=== PATIENT | female | born 1980 | race Caucasian/White ===

== ENCOUNTER 2016-12-06 04:25 | Observation (INO) ==
[2016-12-06] MEDS ORDERED: ONDANSETRON 4 MG/2 ML VIAL IVP ONE (04:45)
[2016-12-06] MEDS ORDERED: MORPHINE SULFATE 4 MG/1 ML IVP ONE (04:45)
[2016-12-06] MEDS ORDERED: Sodium Chloride 0.9% 1,000 ML PRIMARY IV ONE ×2 (04:45→06:37)
--- NOTE | 2016-12-06 04:51 | PDOC ---
Abdomen/Flank HPI - General Chief Complaint: Abdomen Pain Stated Complaint: Abdominal Pain Date Seen by Provider: 12/06/16 Time Seen by Provider: 04:47 Source: POSITIVE: Patient Exam Limitations: POSITIVE: No limitations Nurse's Notes Reviewed & Considered: Yes - History of Present Illness Initial Comments: This is a very pleasant 36-year-old female complaining of left lower quadrant abdominal pain. Patient with left lower quadrant abdominal pain that began 2 days ago, she has associated nausea but no vomiting, pain is getting worse. She describes her pain as crampy with radiation into her left flank and back. She had a recent bowel movement that was altered from her normal pattern with decreased caliber of stool. She denies any headache, no fever but she does have sweats. She denies any diarrhea or constipation, no hematuria or dysuria, no rashes, no myalgias or arthralgias. Body Location Affected: REPORTS: Abdomen Timing: REPORTS: Constant, Getting Worse Duration: >24 hours Severity: Moderate Quality: REPORTS: Cramping, "Pain", Stabbing Abdominal Pain Onset Location: REPORTS: LLQ Abdominal Pain Radiation: REPORTS: Flank Context: REPORTS: None Modifying Factors: improves with: Nothing Associated Symptoms: REPORTS: Back pain, Diaphoresis, Loss of Appetite, Nausea Similar Symptoms Previously: No Recent Care Received: REPORTS: Denies Any Prior Injuries Related to Current Complaint?: No - Patient Home Medications Home Medications: Home Medications Topiramate [Topamax] 1 tab PO tab 05/12/16 - Patient Allergies Allergies/Adverse Reactions: Allergies 3 Allergy/AdvReac Type Severity Reaction Status Date / Time aspirin [Aspirin] Allergy THROAT Verified 12/06/16 04:26 SWELLING ibuprofen Allergy throat Verified 12/06/16 04:26 swelling Past Medical History - heen HEENT History: Denies History Cardiovascular History: Denies History Respiratory History: Denies History Gastrointestinal History: Denies History Genitourinary History: Denies History Endocrine History: Denies History Musculoskeletal History: Denies History Neurological History: Denies History Blood Disorders: Denies History Psychiatric History: Denies History Cancer History: Denies History History of MDRO: No Alcohol Use: None In the Past 12 Months, Have Used or Abuse Any Substance: None ROS Constitution: REPORTS: Diaphoresis Cardiovascular: REPORTS: Denies Cardiac Symptoms Respiratory: REPORTS: Denies Resp Symptoms Neurological: REPORTS: Denies Neuro Symptoms Gastrointestinal: REPORTS: Abdominal Pain, Nausea Endocrine: REPORTS: Denies Symptoms Musculoskeletal: REPORTS: Back Pain Genitourinary: REPORTS: Denies Symptoms Eyes: REPORTS: Denies Symptoms ENT: REPORTS: Denies Symptoms Skin: REPORTS: Denies Skin Symptoms Lympathic: REPORTS: Denies Lympathic Symptoms Immunologic: POSITIVE: Denies Symptoms Psychiatric: POSITIVE: Denies Psych Symptoms Abdominal/Flank Pain PE - General Appearance General Appearance: POSITIVE: Alert, Cooperative, No Acute Distress, No Evidence of Trauma - HEENT HEENT: POSITIVE: Head Inspection Nml, Eyes Inspection Nml, Ears Inspection Nml, Nose Inspection Nml, Oral/Dental Inspect. Nml, Pharynx Inspect. Nml, PERRL, EOMI - Neck Neck: POSITIVE: Normal Inspection, No Apparent Injury - Respiratory Respiratory: POSITIVE: No Respiratory Distress, Breath Sounds Normal, Chest Non- Tender - Cardiovascular Cardiovascular: POSITIVE: Regular Rate and Rhythm, Heart Sounds Normal, Strong Pulses Peripheral Pulses: Radial (L): 4+ - Chest Chest: POSITIVE: Non Tender - Abdomen Abdomen: Soft: (All Quadrants), Normal Bowel Sounds: (All Quadrants), Denies Tenderness: (RLQ), (LUQ), (RUQ), No Splenomegaly: (All Quadrants), No Hepatomegaly: (All Quadrants), No Guarding: (All Quadrants), No Rebound: (All Quadrants), No Palpable Pulse: (All Quadrants), No Palpabale Mass: (All Quadrants), No Distention: (All Quadrants), No Rigidity: (All Quadrants), Tenderness Noted: (LLQ) - Back Back: POSITIVE: Normal Inspection - Skin Skin: POSITIVE: Intact, Normal For Race, Warm, Dry, No Rash - Extremities Extremity: Non-Tender: (All Extremities), Normal ROM: (All Extremities), Normal Inspection: (All Extremities), Pelvis Stable: (All Extremities) - Neurological Neurological: POSITIVE: Oriented X3, pipe layer helper Normal As Tested, Motor Normal, Sensation Normal, 5, 6 Abdomen Progress - Results Reviewed by me Xrays/CTs/US Reviewed by me: Yes Discussed with Radiologist: Yes Lab Results Reviewed by Me: Yes CBC and BMP: 12/06/16 04:33 12/06/16 04:33 - Patient's Progress Pain Medication Addressed: POSITIVE: Yes Re-examine Time: 06:25 Status: POSITIVE: Improved MDM / ED Course: Patient was evaluated, an IV started, blood drawn and sent to the lab for studies, radiographic examinations were also obtained. ER course: Patient received an IV start with a liter of normal saline, 4 mg of morphine sulfate, and Zofran. Her pain minimally improved and began to escalate again at that time she received a milligram of Dilaudid and 0.4 mg of by mouth Flomax. Findings: CBC is within normal limits, comprehensive metabolic panel is normal, TSH is normal, CT scan of her abdomen shows a 6 mm proximal ureteral stone with mild hydro-ureter on hydro-nephrosis. Urine shows blood present, rare bacteria, moderate squamous cells. Plan: Admission for pain control and hydration. - Consult Counseled: POSITIVE: Patient, RE: Lab Results, RE: Radiology Results, RE: DX, RE : Need for F/U Patient Care Time - Estimated PCT Patient Care Time (In Minutes): 45 Vital Signs - VS Reviewed Vital Signs Reviewed: Yes Discharge Clinical Impression: Renal calculi Discharge Disposition: Admit to Inpatient Condition: Stable Follow Up With: TIFFANIE ADAMES [Primary Care Provider] - Date Decision to Admit to Inpatient: 12/06/16 Time Decision to Admit to Inpatient: 07:09
[2016-12-06 05:04] LABS: BASOPHILS # (AUTO) 0.24 10*3/UL; BASOPHILS % (AUTO) 2.4 % (0-1); EOSINOPHILS # (AUTO) 0.12 10*3/UL; EOSINOPHILS % (AUTO) 1.2 % (0-8); Hemoglobin [HGB] 13.3 g/dL (12.0-16.0); LYMPHOCYTES # (AUTO) 3.49 10*3/uL; MEAN CORPUSCULAR HEMOGLOBIN 29.4 PG (27-31); MEAN CORPUSCULAR HGB CONC 34.1 g/dL (33-37); MEAN CORPUSCULAR VOLUME 86.3 FL (81-99); MEAN PLATELET VOLUME 10.8 FL (7.4-12.2); MONOCYTES # (AUTO) 0.85 10*3/UL (0.3-0.8); MONOCYTES % (AUTO) 8.6 % (5-15); NEUTROPHILS # (AUTO) 5.11 10*3/UL; NEUTROPHILS % (AUTO) 52.1 % (50-80); RED BLOOD COUNT 4.52 10^6/uL (4.20-5.40)
[2016-12-06 05:08] LABS: PLATELET MORPHOLOGY COMMENT NORMAL MORPHOLOGY (NORM); RBC MORPHOLOGY COMMENT NORMAL MORPHOLOGY (NORM); WBC MORPHOLOGY COMMENT NORMAL MORPHOLOGY (NORM)
[2016-12-06 05:14] LABS: BLOOD UREA NITROGEN 13 mg/dL (7-22); BUN/CREATININE RATIO 18.57 (6-20); MAGNESIUM 1.8 mg/dL (1.6-2.4); SERUM ALBUMIN 4.1 g/dL (3.5-4.8)
--- NOTE | 2016-12-06 06:04 | DI ---
HISTORY: Left lower quadrant and left flank pain with nausea. COMPARISON: None available. TECHNIQUE: Contiguous axial images of the abdomen and pelvis were obtained from the lung bases throu gh the ischial tuberosities. The images were then submitted for interpretation. FINDINGS: There is no evidence of a consolidation, effusion or pneumothorax in the visualized portio ns of the lungs. There is no lower mediastinal CT abnormality. There is no CT evidence of a liver lesion, nor intrahepatic ductal dilatation. There is no evidence of gallbladder wall thickening or stones, and no pericholecystic fluid or stranding is apparent. Th e pancreas, spleen, and adrenal glands reveal no CT abnormalities. There is a 6 mm proximal left ure teral calculus with mild to moderate left hydronephrosis. No right-sided stones are identified, nor evidence of right-sided hydronephrosis. No genitourinary CT abnormality identified. There is no evidence of bowel wall thickening or inflammatory change, and there is no small bowel dil atation or bowel wall thickening. No adenopathy or mass, nor free fluid or free air identified. The re is no significant atherosclerotic change. There are no lytic or blastic lesions, nor acute fracture or dislocation. The superficial soft tissu es are normal. IMPRESSION: 1. 6 mm proximal left ureteral calculus with mild to moderate left hydronephrosis.
[2016-12-06] MEDS ORDERED: HYDROmorphone 2 MG/1 ML IVP ONE ×2 (06:24→06:52)
[2016-12-06] MEDS ORDERED: TAMSULOSIN 0.4 MG CAPSULE PO ONE (06:24)
[2016-12-06 06:37] LABS: BILIRUBIN,URINE NEGATIVE (NEG); CLARITY,URINE CLOUDY (CLEAR); GLUCOSE, URINE (UA) NEGATIVE (NEG); NITRATE,URINE NEGATIVE (NEG); OCCULT BLOOD,URINE LARGE (NEG); PROTEIN,URINE 30 mg/dl (NEG)
[2016-12-06 06:45] LABS: COLOR,URINE DARK YELLOW; RBC,URINE 80-100 /hpf; URINE SAMPLE TYPE CLEAN CATCH URINE
[2016-12-06 06:46] LABS: BACTERIA,URINE RARE; SQUAMOUS EPITHELIAL CELL,UR MODERATE; URINE CRYSTALS MODERATE
[2016-12-06] MEDS ORDERED: NORMAL SALINE 10 ML SYRINGE FLUSH IVP PRN (07:40)
[2016-12-06] MEDS ORDERED: LIDOCAINE W/ SODIUM BICARB 0.5 ML SYR SUBD PRN (07:40)
[2016-12-06] MEDS ORDERED: ONDANSETRON 4 MG/2 ML VIAL IVP PRN (07:40)
[2016-12-06] MEDS ORDERED: ACETAMINOPHEN 325 MG TABLET PO PRN (07:40)
[2016-12-06] MEDS: Sodium Chloride 0.9% 1,000 ML PRIMARY IV SCH ×2 (09:18→17:45)
[2016-12-06] MEDS: HYDROmorphone 2 MG/1 ML IVP PRN ×3 (09:19→16:22)
--- NOTE | 2016-12-06 13:48 | PDOC ---
HPI - History of Present Illness Date and Time of Service: 12/06/2016, 1345 Chief Complaint: Abdominal pain History of Present Illness: This very pleasant 36-year-old female who came on with sudden abdominal pain about 2 days ago, mostly located in the left quadrant, upper to middle part of the abdomen. She described it as sharp pain and somewhat spasmodic. Dilaudid and morphine were used in the emergency room, and Dilaudid seemed to give the best pain control. Patient denied any fevers or chills, diarrhea problems, or vomiting but did have nausea. She is never had a pain like this before. She stated it was worse than childbirth. CT scan in the emergency room showed a 6 mm stone with associated hydronephrosis and hydroureter ureter. The stone was fairly proximal. No evidence of UTI, but she did have some microscopic hematuria. Past Medical History Medical History: 1. Migraine headaches Surgical History: 1. 2. 2. Hysterectomy Pertinent Family History: No significant medical issues in the family. Parents described as healthy. Past Social History: Does not smoke. Occasionally drinks. and has 4 children. 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 Tobacco Use: Never Smoker In the Past 12 Months, Have Used or Abuse Any of the Following Substance: None Alcohol Use: Rarely Medication / Allergies Home Medications: Home Medications Medication Instructions Recorded Confirmed Type Topiramate [Topamax] 1 tab PO tab 05/12/16 History Allergies/Adverse Reactions: Allergies 3 Allergy/AdvReac Type Severity Reaction Status Date / Time aspirin [Aspirin] Allergy THROAT Verified 12/06/16 04:26 SWELLING ibuprofen Allergy throat Verified 12/06/16 04:26 swelling Review of Systems - Review of Systems All Systems: Reviewed & No Additional Complaints Except as Stated (I did a 12 point review systems and it was negative other than that discussed in the history of present illness.) Exam - Vitals Vital Signs: Vital Signs Temperature 97.4 F Temperature Source Temporal Artery Scan Pulse Rate [Pulse Oximeter] 60 Pulse Rate 81 Respiratory Rate 16 Blood Pressure [Right Arm] 101/56 Blood Pressure [Left Arm] 107/77 Blood Pressure 119/82 Pulse Ox 92 Oxygen Delivery Method Room Air Height 5 ft 1 in Weight 154 lb 4 oz - General General Appearance: No Acute Distress, Cooperative - Head Head Exam: Normal Inspection, Normocephalic, Atraumatic - Eye Eye Exam: POSITIVE: No Scleral Icterus - ENT ENT Exam: POSITIVE: Mucous Membranes Moist - Neck Neck Exam: Normal Inspection, No Tenderness, No Thyromegaly - Respiratory Respiratory Exam: POSITIVE: Clear to Auscultation - Bilaterally, Breathing Non Labored, Normal to Percussion and Palpation - Cardiovascular Cardiovascular Exam: POSITIVE: RRR, No Murmur, No Clicks, No Gallops, No Rubs, No JVD - GI/Abdominal GI/Abdominal Exam: POSITIVE: Normal Bowel Sounds, Non Tender (Patient had nontender abdominal exam with palpation. She was obviously uncomfortable, and changed her position multiple times during exam.), Non Distended, Soft - Rectal Rectal Exam: POSITIVE: Deferred - External Exam: POSITIVE: Deferred Exam: POSITIVE: Deferred - Extremities Extremities Exam: POSITIVE: No Clubbing Present, No Edema Present, No Cyanosis Present - Back Back Exam: POSITIVE: Normal Inspection, No CVA Tenderness - Neurological Neurological Exam: POSITIVE: Alert, Oriented x 3, No Facial Droop, Speech Intact / Clear, Moves All Extremities Equally - Psychiatric Psychiatric Exam: POSITIVE: Normal Affect, Normal Mood - Integumentary Integumentary Exam: POSITIVE: Normal Color, Warm, Dry, Intact Additional Integumentary Exam Details: Several tattoos noted on upper extremities. Results - Labs CBC and BMP: 12/06/16 04:33 12/06/16 04:33 - Imaging Status: Image Reviewed by Me (I looked at the CT scan of the abdomen and pelvis , and left kidney does appear to be somewhat larger and the proximal ureter appears larger with a stone noted.) Assessment and Plan - Patient Problems (1) Left nephrolithiasis Current Visit: Yes Status: Acute Code(s): N20.0 - Calculus of kidney (2) Abdominal pain Current Visit: Yes Status: Acute Code(s): R10.9 - Unspecified abdominal pain Qualifiers: Abdominal location: left upper quadrant Qualified Code(s): R10.12 - Left upper quadrant pain - Assessment / Plan Additional Assessment/Plan Details: Admit the patient problems patient IV fluids IV pain medications and start oral pain medications. Try and arrange a urology appointment as an outpatient. With this being a 6 mm stone and somewhat proximal, I don't know if it will pass easily. The patient may need lithotripsy or some other procedure. If we can get the pain under better control, improved hydration, control nausea , then I think the patient could potentially go home either later today or early tomorrow. I confirmed the allergy with ibuprofen, unfortunately, the patient gets throat swelling and hives with anti-inflammatories. I discussed the above plan with the patient and her and they agreed.
[2016-12-06] MEDS: HYDROcodone-APAP 7.5 MG-325 MG TABLET PO PRN ×2 (16:16→20:20)
[2016-12-06] MEDS ORDERED: Prochlorperazine Edisylate Inj 10mg/2ml vial IVP PRN (17:19)
[2016-12-06] MEDS ORDERED: fentaNYL Inj 100 MCG/2 ML VIAL IM PRN (17:36)
[2016-12-06] MEDS: fentaNYL Inj 100 MCG/2 ML VIAL IVP PRN ×2 (17:47→20:20)
[2016-12-06] MEDS ORDERED: TOPIRAMATE 100 MG PO SCH (21:00)
[2016-12-07] MEDS: fentaNYL Inj 100 MCG/2 ML VIAL IVP PRN ×3 (00:38→08:01)
[2016-12-07] MEDS: HYDROcodone-APAP 7.5 MG-325 MG TABLET PO PRN ×3 (00:38→08:01)
[2016-12-07] MEDS: Sodium Chloride 0.9% 1,000 ML PRIMARY IV SCH (00:47)
[2016-12-07 04:55] LABS: BLOOD UREA NITROGEN 8 mg/dL (7-22)
[2016-12-07 07:51] VITALS: BP 104/62; RESP 16; TEMP 98.4
--- NOTE | 2016-12-07 08:01 | DCSUMMARY ---
Hospitalization Summary Admit Date: 12/06/16 Discharge Date: 12/07/16 Primary Diagnosis:: nephrolithiasis, 6 mm stone left side with hydronephrosi Hospital Course: This very pleasant 36-year-old female who presented with acute abdominal pain that had worsened over the last 2 days, accompanied with nausea and vomiting. The pain was quite severe and CT scan showed a left kidney stone, proximal, 6 mm , with hydronephrosis and hydroureter ureter proximal to the stone. Patient was admitted under observation for pain medications, antiemetics, and IV fluids. We had to use narcotics due to the patient's allergies to NSAIDs, including hives and throat swelling with ibuprofen in the past. She had better pain control overnight, but a KUB showed the stone hasn't moved, and the pain persists in the same location. I was able to arrange an appointment with the urologist, Dr. Stallings, today, and will discharge patient now. She has been nothing by mouth since midnight. Today, no completes of chest pain, shortness breath, and nausea and vomiting has improved. Pain persists in the abdomen and the location of the pain has not changed. Much worse with deep palpation. Assessment and Plan: 1. As per discharge assessments noted 2. Disposition: Patient is discharged home. 3. Condition on discharge, stable and improved. 4. Diet: Nothing by mouth until further instructions from Dr. Stallings 5. Activities: resume normal activities 6. Follow-Up: 1. See Dr. Stallings today at 9:30 AM 2. 7. Medications at the Time of Discharge: Home Medications Medication Instructions Recorded Confirmed Type Topiramate [Topamax] 1 tab PO tab 05/12/16 History HYDROcodone/APAP 7.5/325 Tab 1 - 2 tab PO Q4H PRN #20 tab 12/06/16 Rx [Keo 7.5/325 Tab] 8. Time, care, counseling and coordination of care for this discharge is less than 30 minutes. Exam - Vitals Vital Signs: Vital Signs Temperature 98.4 F Temperature Source Temporal Artery Scan Pulse Rate [Pulse Oximeter] 73 Pulse Rate 81 Respiratory Rate 16 Blood Pressure [Right Arm] 104/62 Blood Pressure [Left Arm] 107/77 Blood Pressure 119/82 Pulse Ox 92 Oxygen Delivery Method Room Air Height 5 ft 1 in Weight 154 lb 4 oz - General General Appearance: No Acute Distress, Cooperative - Eye Eye Exam: POSITIVE: No Scleral Icterus - ENT ENT Exam: POSITIVE: Mucous Membranes Moist - Respiratory Respiratory Exam: POSITIVE: Clear to Auscultation - Bilaterally, Breathing Non Labored - Cardiovascular Cardiovascular Exam: POSITIVE: RRR, No Murmur, No Clicks, No Gallops, No Rubs, No JVD - GI/Abdominal GI/Abdominal Exam: POSITIVE: Normal Bowel Sounds, Non Distended, Soft Additional GI/Abdominal Exam Details: Pain noted left upper and left mid lateral quadrants - Extremities Extremities Exam: POSITIVE: No Clubbing Present, No Edema Present, No Cyanosis Present - Neurological Neurological Exam: POSITIVE: Alert, Oriented x 3, No Facial Droop, Speech Intact / Clear, Moves All Extremities Equally - Psychiatric Psychiatric Exam: POSITIVE: Normal Affect, Normal Mood Data Perinent Studies: Laboratory Results 12/06/16 12/06/16 12/06/16 Range/Units 04:33 04:33 04:33 WBC 9.83 (4.8-10.8) 10^3/uL RBC 4.52 (4.20-5.40) 10^6/uL Hgb 13.3 (12.0-16.0) g/dL Hct 39.0 (37.0-47.0) % MCV 86.3 (81-99) FL MCH 29.4 (27-31) PG MCHC 34.1 (33-37) g/dL RDW Std Deviation 38.9 L (39-50) fL RDW Coeff of Faustina 12.7 (11.5-14.5) % Plt Count 349 (140-350) 10*3/uL MPV 10.8 (7.4-12.2) FL Immature Gran % (Auto) 0.2 (0-5) % Neut % (Auto) 52.1 (50-80) % Lymph % (Auto) 35.5 (10-50) % Pitkin % (Auto) 8.6 (5-15) % Eos % (Auto) 1.2 (0-8) % Baso % (Auto) 2.4 H (0-1) % Immature Gran # (Auto) 0.02 10*3/UL Neut # (Auto) 5.11 10*3/UL Lymph # (Auto) 3.49 10*3/uL Pitkin # (Auto) 0.85 H (0.3-0.8) 10*3/UL Eos # (Auto) 0.12 10*3/UL Baso # (Auto) 0.24 10*3/UL WBC Morphology Comment Normal morphology (NORM) Plt Morphology Comment Normal morphology (NORM) RBC Morph Comment Normal morphology (NORM) PT (9.7-11.4) secs INR (0.00-5.90) N/A Sodium 138 (135-145) meq/L Potassium 4.1 (3.8-5.2) meq/L Chloride 105 (98-112) meq/L Carbon Dioxide 23 (23-33) meq/L Anion Gap 10 (5-20) BUN 13 (7-22) mg/dL Creatinine 0.7 (0.50-1.20) mg/dL Estimated GFR > 60 (>60 ml/min/1.73m(2)) BUN/Creatinine Ratio 18.57 (6-20) Glucose 141 H (78-110) mg/dL Calculated Osmolality 287.0 (267-292) mOsm/kg Calcium 9.5 (8.7-10.7) mg/dL Magnesium 1.8 (1.6-2.4) mg/dL Total Bilirubin 0.5 (0.3-1.2) mg/dL AST 18 (8-39) IU/L ALT 30 (9-52) IU/L Alkaline Phosphatase 69 (38-126) IU/L Total Protein 7.2 (6.1-8.0) g/dL Albumin 4.1 (3.5-4.8) g/dL Globulin 3.0 (2.50-4.10) g/dL Albumin/Globulin Ratio 1.30 (1.3-2.0) mg/g TSH 1.84 (0.2700-4.2000) uIU/mL Ur Collection Type Urine Color Urine Clarity (CLEAR) Urine pH (5.0-8.5) Ur Specific [place] (1.005-1.030) Urine Protein (NEG) mg/dl Urine Glucose (UA) (NEG) mg/dL Urine Ketones (NEG) Urine Occult Blood (NEG) Urine Nitrate (NEG) Urine Bilirubin (NEG) Urine Urobilinogen (0.2) EU/dL Ur Leukocyte Esterase (NEG) Urine RBC (NONE) /hpf Urine WBC (NONE) Ur Squamous Epith Cells (NONE) Ur Renal Epithelial Cell (NONE) Urine Crystals Urine Bacteria (NONE) Urine Casts (NONE) Urine Mucus (NONE) Urine Trichomonas (NONE) Urine Yeast (NONE) Ur Culture Indicated? 12/06/16 12/07/16 12/07/16 Range/Units 06:28 04:30 04:30 WBC (4.8-10.8) 10^3/uL RBC (4.20-5.40) 10^6/uL Hgb (12.0-16.0) g/dL Hct (37.0-47.0) % MCV (81-99) FL MCH (27-31) PG MCHC (33-37) g/dL RDW Std Deviation (39-50) fL RDW Coeff of Faustina (11.5-14.5) % Plt Count (140-350) 10*3/uL MPV (7.4-12.2) FL Immature Gran % (Auto) (0-5) % Neut % (Auto) (50-80) % Lymph % (Auto) (10-50) % Pitkin % (Auto) (5-15) % Eos % (Auto) (0-8) % Baso % (Auto) (0-1) % Immature Gran # (Auto) 10*3/UL Neut # (Auto) 10*3/UL Lymph # (Auto) 10*3/uL Pitkin # (Auto) (0.3-0.8) 10*3/UL Eos # (Auto) 10*3/UL Baso # (Auto) 10*3/UL WBC Morphology Comment (NORM) Plt Morphology Comment (NORM) RBC Morph Comment (NORM) PT 10.5 (9.7-11.4) secs INR 0.99 (0.00-5.90) N/A Sodium 136 (135-145) meq/L Potassium 3.7 L (3.8-5.2) meq/L Chloride 109 (98-112) meq/L Carbon Dioxide 20 L (23-33) meq/L Anion Gap 7 (5-20) BUN 8 (7-22) mg/dL Creatinine 0.8 (0.50-1.20) mg/dL Estimated GFR > 60 (>60 ml/min/1.73m(2)) BUN/Creatinine Ratio 10.00 (6-20) Glucose 106 (78-110) mg/dL Calculated Osmolality 279.0 (267-292) mOsm/kg Calcium 8.5 L (8.7-10.7) mg/dL Magnesium (1.6-2.4) mg/dL Total Bilirubin (0.3-1.2) mg/dL AST (8-39) IU/L ALT (9-52) IU/L Alkaline Phosphatase (38-126) IU/L Total Protein (6.1-8.0) g/dL Albumin (3.5-4.8) g/dL Globulin (2.50-4.10) g/dL Albumin/Globulin Ratio (1.3-2.0) mg/g TSH (0.2700-4.2000) uIU/mL Ur Collection Type Clean catch urine Urine Color Dark yellow Urine Clarity Cloudy (CLEAR) Urine pH 8.0 (5.0-8.5) Ur Specific [place] 1.015 (1.005-1.030) Urine Protein 30 (NEG) mg/dl Urine Glucose (UA) Negative (NEG) mg/dL Urine Ketones Negative (NEG) Urine Occult Blood Large H (NEG) Urine Nitrate Negative (NEG) Urine Bilirubin Negative (NEG) Urine Urobilinogen 1.0 (0.2) EU/dL Ur Leukocyte Esterase Negative (NEG) Urine RBC 80-100 (NONE) /hpf Urine WBC None (NONE) Ur Squamous Epith Cells Moderate (NONE) Ur Renal Epithelial Cell None (NONE) Urine Crystals Moderate Urine Bacteria Rare (NONE) Urine Casts None (NONE) Urine Mucus None (NONE) Urine Trichomonas None (NONE) Urine Yeast None (NONE) Ur Culture Indicated? Culture not set radiology results: ~DIAGNOSTIC IMAGING REPORT~ Patient: HUSSEIN RAMIREZ : 1980 Sex: F Age: 36 Exam Name: CT Abdomen/Pelvis WO Contrast Exam Date: 12/06/16 Report # : [id number] CPT Code: 22523 EMR/MR #: [id number] Ordering: Cortes Rocha Admiting: IVONNE PATEL DO Primary: Thuan Coughlin MD. Attending: IVONNE PATEL DO Signed HISTORY: Left lower quadrant and left flank pain with nausea. COMPARISON: None available. TECHNIQUE: Contiguous axial images of the abdomen and pelvis were obtained from the lung bases through the ischial tuberosities. The images were then submitted for interpretation. FINDINGS: There is no evidence of a consolidation, effusion or pneumothorax in the visualized portions of the lungs. There is no lower mediastinal CT abnormality. There is no CT evidence of a liver lesion, nor intrahepatic ductal dilatation. There is no evidence of gallbladder wall thickening or stones, and no pericholecystic fluid or stranding is apparent. The pancreas, spleen, and adrenal glands reveal no CT abnormalities. There is a 6 mm proximal left ureteral calculus with mild to moderate left hydronephrosis. No right-sided stones are identified, nor evidence of right-sided hydronephrosis. No genitourinary CT abnormality identified. There is no evidence of bowel wall thickening or inflammatory change, and there is no small bowel dilatation or bowel wall thickening. No adenopathy or mass, nor free fluid or free air identified. There is no significant atherosclerotic change. There are no lytic or blastic lesions, nor acute fracture or dislocation. The superficial soft tissues are normal. IMPRESSION: 1. 6 mm proximal left ureteral calculus with mild to moderate left hydronephrosis. Dictated By: 12/06/16 0000 VARUN BENAVIDES MD. Signed By: 12/06/16 1527 VARUN BENAVIDES MD. Patient Problems - Patient Problem List (1) Left nephrolithiasis Current Visit: Yes Status: Acute Code(s): N20.0 - Calculus of kidney Category: Medical (2) Abdominal pain Current Visit: Yes Status: Acute Code(s): R10.9 - Unspecified abdominal pain Qualifiers: Abdominal location: left upper quadrant Qualified Code(s): R10.12 - Left upper quadrant pain Category: Medical
--- NOTE | 2016-12-07 10:58 | DI ---
XR ABDOMEN (KUB) FLAT SOHAIL,12/06/2016 5:00 PM: Clinical History: Left-sided kidney stone. Previous Exam: CT abdomen pelvis performed on the same date. Findings: A single KUB is obtained, and demonstrates a calcification in the left upper quadrant measuring 5 mm in diameter in the region of the stones seen on the prior exam. A nonobstructive bowel gas pattern is seen. Moderate stool is seen throughout the colon. No fractures are seen. Impression: 5 mm calcified density within the left upper quadrant consistent with a proximal left ureteral stone.
== END 2016-12-07 08:19 | disposition home or self-care (01) ==
LOC: ER 04:25 → INTOOBSV 07:15 → MED/SURG 07:15
PROVIDERS: ADMIT Family Medicine; ATTEND Family Medicine